=== PATIENT | female | born 1940 | race Caucasian/White ===

== ENCOUNTER 2021-03-18 08:02 | Observation (INO) ==
[~2021-03-18 08:02] MED LIST: Polymyxin B Sulfate 500,000 UNIT, Sodium Chloride IRRigation 1,000 ML IR ONE
[2021-03-18] MEDS ORDERED: CeFAZolin Syr 2,000MG/20 ML 2,000 MG/20 ML SYRINGE IVPB ONE (08:19)
[2021-03-18] MEDS ORDERED: *HR* OxyCODONE Immed Rel 5 MG TABLET PO PRN ×2 (08:28→14:57)
[2021-03-18] MEDS ORDERED: Ondansetron 4 MG/2 ML VIAL IVP PRN ×2 (08:28→14:57)
[2021-03-18] MEDS ORDERED: *HR* Labetalol 20 MG/4 ML SYRINGE IVP PRN (08:28)
[2021-03-18] MEDS ORDERED: Albuterol 2.5 MG/3 ML NEBULIZER IH PRN (08:28)
[2021-03-18] MEDS ORDERED: tiZANidine 4 MG TABLET PO ONE (08:30)
[2021-03-18] MEDS ORDERED: Ringers Solution, Lactated 1,000 ML IVC SCH ×2 (08:30→14:57)
[2021-03-18] MEDS ORDERED: Pregabalin 50 MG CAPSULE PO ONE (08:30)
[2021-03-18] MEDS ORDERED: *HR* OxyCODONE Immed Rel 5 MG TABLET PO ONE (08:30)
[2021-03-18] MEDS ORDERED: Acetaminophen IV 1,000 MG/100 ML BAG IVPB ONE (08:30)
[2021-03-18] MEDS ORDERED: Lidocaine -MPF 2% 5 ML VIAL ONE (09:15)
[2021-03-18] MEDS ORDERED: *HR* Rocuronium Bromide 50 MG/5 ML VIAL ONE (09:15)
[2021-03-18] MEDS ORDERED: *HR* Succinylcholine 200 MG/10 ML VIAL IVP ONE (09:15)
[2021-03-18] MEDS ORDERED: Ondansetron 4 MG/2 ML VIAL ONE (09:15)
[2021-03-18] MEDS ORDERED: *HR* Phenylephrine 10 MG/ML VIAL ONE (09:15)
[2021-03-18] MEDS ORDERED: *HR* Propofol 200 MG/20 ML VIAL IVP ONE ×2 (09:15→12:25)
[2021-03-18] MEDS ORDERED: *HR* Midazolam HCl 2 MG/2 ML VIAL ONE (09:16)
[2021-03-18] MEDS ORDERED: *HR* FentaNYL (PF) 100 MCG/2 ML VIAL ONE (09:16)
[2021-03-18] MEDS ORDERED: *HR* Remifentanil 1 MG VIAL IVP ONE (09:16)
[2021-03-18] MEDS ORDERED: Vancomycin 1,000 MG VIAL ONE (09:32)
[2021-03-18] MEDS: *HR* HYDROmorphone PF 0.5 MG/0.5 ML SYRINGE IVP PRN ×3 (14:15→14:28)
[2021-03-18] MEDS ORDERED: Naloxone 0.4 MG/ML INJ IVP PRN (14:57)
[2021-03-18] MEDS ORDERED: Acetaminophen 325 MG TABLET PO PRN (14:57)
[2021-03-18] MEDS: Gabapentin 100 MG CAPSULE PO SCH ×2 (15:27→21:16)
[2021-03-18] MEDS: *HR* HYDROcodone/Acet 5/325 mg TABLET PO PRN (15:27)
[2021-03-18] MEDS: CeFAZolin 2 GM/120 ML BAG IVPB SCH (17:35)
[2021-03-18] MEDS: rOPINIRole 1 MG TABLET PO SCH (21:15)
[2021-03-19] MEDS: CeFAZolin 2 GM/120 ML BAG IVPB SCH (03:12)
[2021-03-19] MEDS: Gabapentin 100 MG CAPSULE PO SCH ×3 (09:48→20:30)
[2021-03-19] MEDS: *HR* HYDROcodone/Acet 5/325 mg TABLET PO PRN (09:48)
[2021-03-19] MEDS: Metoprolol XL (24 HR) Succ 25 MG TAB.ER.24H PO SCH (09:49)
[2021-03-19] MEDS: rOPINIRole 1 MG TABLET PO SCH (20:30)
[2021-03-20] MEDS: *HR* HYDROcodone/Acet 5/325 mg TABLET PO PRN (03:33)
[2021-03-20] MEDS: Gabapentin 100 MG CAPSULE PO SCH (08:40)
[2021-03-20] MEDS: Metoprolol XL (24 HR) Succ 25 MG TAB.ER.24H PO SCH (08:40)
[2021-03-20 10:23] VITALS: BP 131/73; PULSE 77; TEMP 97.5; O2SAT 94
== END 2021-03-20 11:41 | disposition home or self-care (01) ==
LOC: 4WAOSI 08:02 → SDCAOSI 08:02 → 4WAOSI 14:44
PROVIDERS: ADMIT Orthopaedic Surgery Orthopaedic Surgery of the Spine; ATTEND Orthopaedic Surgery Orthopaedic Surgery of the Spine